=== PATIENT | male | born 1995 | race Caucasian/White ===

== ENCOUNTER 2021-12-04 10:27 | Emergency (ER) | payer OTHER ==
[2021-12-04 10:39] VITALS: BP 105/65; PULSE 77; RESP 18; TEMP 98; BMI 20.9
[2021-12-04] MEDS ORDERED: ACETAMINOPHEN 325 MG TABLET (FP) PO ONE (11:59)
[2021-12-04] MEDS ORDERED: KETOROLAC TROMETHAMINE 60 MG/2 ML VIAL IM ONE (11:59)
[2021-12-04] MEDS ORDERED: METHOCARBAMOL 500 MG TABLET PO ONE (12:01)
[2021-12-04] MEDS ORDERED: KETOROLAC TROMETHAMINE 30 MG/1 ML VIAL ONE (12:07)
[2021-12-04] MEDS ORDERED: ACETAMINOPHEN 325 MG TABLET (FP) ONE (12:07)
[2021-12-04] MEDS ORDERED: METHOCARBAMOL 500 MG TABLET ONE (12:07)
[2021-12-04] MEDS ORDERED: diphenhydrAMINE HCL 25 MG CAPSULE (FP) PO ONE ×2 (13:25→13:28)
== END 2021-12-04 14:28 | disposition home or self-care (01) ==
LOC: JERFT 10:27
DX: M54.2 Cervicalgia (principal); M54.50 Low back pain, unspecified; M25.512 Pain in left shoulder; V89.2XXA Person injured in unspecified motor-vehicle accident, traffic, initial encounter
CPT/HCPCS: 72040-TC; 72100-TC-FY; 73030-TC-LT-FY; 73110-TC-LT-FY; 73130-TC-LT-FY; 99285-25